=== PATIENT | female | born 1960 | race Caucasian/White ===

== ENCOUNTER 2017-01-08 22:55 | Observation (INO) | payer OTHER ==
[~2017-01-08 22:55] MED LIST: ASPI325T PO; ATEN25TA PO
[2017-01-08] MEDS ORDERED: IOHEXOL 350 MG/ML 100 ML BTL (for Cath Lab) OTHER ONE (23:06)
[2017-01-08 23:30] VITALS: BP 123/72; PULSE 75; RESP 20; TEMP 98.3; O2SAT 99
[2017-01-08] MEDS ORDERED: METO50TA PO (23:50)
[2017-01-08] MEDS ORDERED: METF500T PO (23:50)
[2017-01-09] MEDS ORDERED: ACETAMINOPHEN 500 MG CPLT PO PRN (03:00)
[2017-01-09] MEDS ORDERED: ONDANSETRON HCL 4 MG/2 ML VIAL IV PUSH PRN (03:00)
[2017-01-09 04:24] VITALS: BP 119/67; PULSE 73; RESP 19; TEMP 98.1; O2SAT 100
[2017-01-09 07:04] VITALS: BP 107/65; PULSE 76; RESP 18; TEMP 98; O2SAT 99
[2017-01-09] MEDS ORDERED: METO50TA11 PO (07:34)
[2017-01-09 09:12] LABS: ANION GAP 5 MEQ/L (5-15); AST (GOT) 20 U/L (15-37); BICARBONATE 25.2 MEQ/L (21.0-32.0); BLOOD UREA NITROGEN 16 MG/DL (7-18); CHLORIDE 109 MEQ/L (98-107); GLOMERULAR FILTRATION RATE 78 ML/MIN (>89); SODIUM (NA) 139 MEQ/L (136-145)
[2017-01-09 09:14] LABS: ALT (GPT) 28 U/L (10-53)
[2017-01-09 09:16] LABS: ALKALINE PHOSPHATASE 70 U/L (45-117); TOTAL BILIRUBIN ADULT 0.8 MG/DL (0.2-1.0)
--- NOTE | 2017-01-09 09:25 | RADRPT ---
EXAM DATE/TIME: 01/09/2017 08:08 [facility] COMPARISON: No previous studies available for comparison. INDICATIONS : Nausea and vomiting. MEDICAL HISTORY : Diabetes. Irregular heartbeat. SURGICAL HISTORY : Right knee surgery. ENCOUNTER: Initial ACUITY: 2 days PAIN SCORE: 3/10 LOCATION: Right upper quadrant MEASUREMENTS: LIVER: 18.3 cm length COMMON DUCT: 5 mm RIGHT KIDNEY: 12.3 x 6.3 x 5.3 cm FINDINGS: LIVER: Mildly diffusely increased echogenicity without evidence for volume loss or intrahepatic ductal dilat ation or focal mass. COMMON DUCT: No intraluminal mass or stone visualized. GALLBLADDER: Small amount of layering echogenic material in the gallbladder consistent with sludge. No gallbladder wall thickening, pericholecystic fluid or sonographic Kelly sign. PANCREAS: The visualized portions are within normal limits. RIGHT KIDNEY: No evidence of hydronephrosis, stone, or mass. CONCLUSION: 1. Small amount of gallbladder sludge without sonographic evidence for acute cholecystitis. 2. Increased hepatic echogenicity without evidence for volume loss consistent with hepatic steatosis or medical liver disease. Sang Daugherty MD on January 09, 2017 at 9:22 Board Certified Radiologist. This report was verified electronically.
--- NOTE | 2017-01-09 09:39 | HHI.HP ---
HPI Primary Care Physician Non-Staff Chief Complaint Chest pain History of Present Illness This is a 56-year-old female that presents to ED in [place] to evaluate chest discomfort and subsequently transferred via ambulance to the chest pain center further evaluate her chest discomfort. She states that for the last 2 weeks she has had intermittent central chest discomforts that will last a few seconds at a time. However when it occurs it will repeat itself for about 15 minutes and then resolved. She will have this happen 3-4 times a day over the last 2 weeks. She times lightheaded. She also states that over last 2 weeks she will become short of breath while walking up 2 flights of stairs which is unusual for her. Denies diaphoresis. Initially denied nausea with her symptoms but now states that she recalls being nauseous over last 3-4 weeks. Sometimes related to food ingestion. Initially denied abdominal pain to me but states to Dr. Dewayne Win that she's had intermittent abdominal pains over the last couple weeks as well. Denies bowel movement changes. Denies emesis. Denies blood in stool. Denies recent illnesses. Denies recent travel or recent sick contacts. Review of Systems General: Patient denies fevers, chills recent, and recent travel HEENT: Patient denies headache, sore throat, difficulty swallowing. Cardiovascular: Has the chest discomfort as mentioned above. At times he has felt a sensation of heart beating rapidly. No syncope. No diaphoresis. Respiratory: She states she has become short of breath walking up 2 flights of stairs which is unusual for. Denies inspirational chest discomfort. Denies coughing wheezing or hemoptysis. GI: Initially denied abdominal pain but with Dr. Dewayne Win evaluation she cannot recall having 2 weeks of intermittent discomforts in her abdomen. She missed occasional nausea. Denies emesis. Denies black or bloody stools. Musculoskeletal: Patient denies joint pain or edema. Denies calf pain or edema. Neurovascular: Patient denies numbness, tingling, weakness in extremities. Denies headache. Endocrine: Denies polyuria and polydipsia. Hematologic: Denies easy bruising. Skin: Denies rash or itching. Past Family Social History Allergies: Coded Allergies: No Known Allergies (Verified Allergy, Severe, 01/08/17) Past Medical History Diabetes for 4 years. History of an arrhythmia states she takes beta danitza for that. Denies hypertension, hyperlipidemia, CAD. Believes she had a stress test 10 years ago and that was okay. Reported Medications Reported Meds & Active Scripts Active Reported Metoprolol Succinate ER 24 HR (Metoprolol Succinate) 50 Mg Tab 50 Mg PO DAILY Metformin (Metformin HCl) 500 Mg Tab 500 Mg PO BIDPC Metoprolol Tartrate 50 Mg Tab 50 Mg PO DAILY Aspirin 325 Mg Tab 325 Mg PO DAILY Active Ordered Medications Current Medications Medications (Trade) Dose Ordered Sig/Ivon Route Start Time Stop Time Status Last Admin (Tylenol) 500 mg Q4H PRN PO 01/09/17 03:00 (Zofran Inj) 4 mg Q6H PRN IV PUSH 01/09/17 03:00 Family History Her father had onset CAD in his 50s lived to be 71. Social History Patient is a lifetime nonsmoker. Denies alcohol or illicit drugs. She is for 25 years. Physical Exam Vital Signs Vital Signs Date Time Temp Pulse Resp B/P (MAP) Pulse Ox O2 Delivery O2 Flow Rate FiO2 01/09/17 07:04 98.0 76 18 107/65 (79) 99 01/09/17 04:24 98.1 73 19 119/67 (84) 100 01/08/17 23:30 98.3 75 20 123/72 (89) 99 Physical Exam GENERAL: This is a well-nourished, well-developed patient, in no apparent distress. Patient speaks in clear complete sentences. Patient is pleasant. HEENT: Head is atraumatic and normocephalic. Neck is supple without lymphadenopathy and trachea is midline. No JVD or carotid bruits. CARDIOVASCULAR: Regular rate and rhythm without murmurs, gallops, or rubs. RESPIRATORY: Clear to auscultation. Breath sounds equal bilaterally. No wheezes , rales, or rhonchi. Chest wall is nontender. No use of accessory muscles. GASTROINTESTINAL: Abdomen is tender more so in the epigastric region. Nondistended. Abdomen soft. No obvious pulsatile mass or bruit. No CVA tenderness. Normal bowel sounds in all quadrants. MUSCULOSKELETAL: Patient is moving upper and lower extremities freely. No calf tenderness or edema, no Homans sign. Strong pulses in upper and lower extremities. NEUROLOGICAL: Patient is alert and oriented. Cranial nerves 2-12 are grossly intact. No focal deficits and speech is clear. SKIN: No rash and turgor is normal. Laboratory Laboratory Tests Test 01/09/17 08:35 Blood Urea Nitrogen 16 Creatinine 0.77 Random Glucose 108 Total Protein 6.8 Albumin 3.7 Calcium Level 8.7 Alkaline Phosphatase 70 Aspartate Amino Transf (AST/SGOT) 20 Alanine Aminotransferase (ALT/SGPT) 28 Total Bilirubin 0.8 Sodium Level 139 Potassium Level 4.0 Chloride Level 109 Carbon Dioxide Level 25.2 Anion Gap 5 Estimat Glomerular Filtration Rate 78 Lipase 105 Result Diagram: 01/09/17 0835 Course EKGs have sinus rhythm without significant ST segment depressions or elevations. Caprini VTE Risk Assessment Caprini VTE Risk Assessment: No/Low Risk (score <= 1) Caprini Risk Assessment Model Point Value = 1 Point Value = 2 Point Value = 3 Point Value = 5 Age 41-60 Minor surgery BMI > 25 kg/m2 Swollen legs Varicose veins or History of unexplained or recurrent spontaneous Oral contraceptives or hormone replacement Sepsis (< 1 month) Serious lung disease, including pneumonia (< 1 month) Abnormal pulmonary function Acute myocardial infarction Congestive heart failure (< 1 month) History of inflammatory bowel disease Medical patient at bed rest Age 61-74 Arthroscopic surgery Major open surgery (> 45 min) Laparoscopic surgery (> 45 min) Malignancy Confined to bed (> 72 hours) Immobilizing plaster cast Central venous access Age >= 75 History of VTE Family history of VTE Factor V Leiden Prothrombin [id number] Lupus anticoagulant Anticardiolipin antibodies Elevated serum homocysteine Heparin-induced thrombocytopenia Other congenital or acquired thrombophilia Stroke (< 1 month) Elective arthroplasty Hip, pelvis, or leg fracture Acute spinal cord injury (< 1 month) Prophylaxis Regimen Total Risk Factor Score Risk Level Prophylaxis Regimen 0-1 Low Early ambulation 2 Moderate Order ONE of the following: *Sequential Compression Device (SCD) *Heparin 5000 units SQ BID 3-4 Higher Order ONE of the following medications: *Heparin 5000 units SQ TID *Enoxaparin/Lovenox 40 mg SQ daily (WT < 150 kg, CrCl > 30 mL/min) *Enoxaparin/Lovenox 30 mg SQ daily (WT < 150 kg, CrCl > 10-29 mL/min) *Enoxaparin/Lovenox 30 mg SQ BID (WT < 150 kg, CrCl > 30 mL/min) AND/OR *Sequential Compression Device (SCD) 5 or more Highest Order ONE of the following medications: *Heparin 5000 units SQ TID (Preferred with Epidurals) *Enoxaparin/Lovenox 40 mg SQ daily (WT < 150 kg, CrCl > 30 mL/min) *Enoxaparin/Lovenox 30 mg SQ daily (WT < 150 kg, CrCl > 10-29 mL/min) *Enoxaparin/Lovenox 30 mg SQ BID (WT < 150 kg, CrCl > 30 mL/min) AND *Sequential Compression Device (SCD) Assessment and Plan Assessment and Plan * Chest pain: Patient has had serial cardiac enzymes and EKGs for ruling out purposes. She was seen by Dr. Dewayne Win of cardiology in the chest pain center and will undergo a Lexiscan myocardial perfusion stress test and likely be discharged home if that is nonischemic also pending the workup for her abdominal discomfort. She should follow-up with her PCP after discharge. * Abdominal pain: We will get LFTs, lipase, and gallbladder ultrasound. * Diabetes: Patient on sliding scale coverage. Resume medication at discharge. She should follow diabetic diet. Patient is stable at this time. She is agreeable to this plan. Alejandro Pastor Jan 09, 2017 09:39
[2017-01-09] MEDS ORDERED: REGADENOSON INJ 0.4 MG/5 ML SYR ONE (10:36)
--- NOTE | 2017-01-09 11:50 | RADRPT ---
EXAM DATE/TIME: 01/09/2017 09:23 1[facility] COMPARISON: No previous studies available for comparison. INDICATIONS : Mid chest pain for two weeks. Angina. DOSE: 35.0 mCi Tc99m Myoview at stress. 11 mCi Tc99m Myoview at rest. 0.4 mg Lexiscan STRESS SYMPTOMS: Shortness of breath, dizziness. EJECTION FRACTION: 66% MEDICAL HISTORY : Diabetes mellitus type 2. SURGICAL HISTORY : Right knee. ENCOUNTER: Initial ACUITY: 2 weeks PAIN SCALE: 4/10 LOCATION: Midsternal chest TECHNIQUE: The patient underwent pharmacologic stress with infusion of prescribed dose. Continuous ECG tracing was monitored during stress. Gated SPECT imaging was performed after stress and conventional SPECT i maging was performed at rest. The examination was performed on a SPECT/CT scanner, both attenuation and non-corrected datasets were reviewed. FINDINGS: DISTRIBUTION: The maximum perfused segment at stress is in the lateral wall. PERFUSION STUDY: There is small area of moderately diminished relative perfusion involving the inferolateral region wi th at least mild redistribution present. GATED STUDY: There is intact wall motion and thickening without hypokinetic or dyskinetic segments. CONCLUSION: Small sized moderate severity moderately reversible inferolateral perfusion abnormality. RISK CATEGORY: Low (<1% Annual Mortality Rate) Samson Longoria MD on January 09, 2017 at 11:43 Board Certified Radiologist. This report was verified electronically.
[2017-01-09 12:53] VITALS: BP 159/96; PULSE 65
[2017-01-09] MEDS ORDERED: METOPROLOL SUCCINATE 50 MG EXTENDED RELEASE TAB PO SCH (13:00)
[2017-01-09] MEDS ORDERED: SODIUM CHLOR 0.9% 1000 ML INJ 1,000 ML IV SCH (13:01)
[2017-01-09] MEDS ORDERED: MIDAZOLAM HCL 5 MG/5 ML VIAL ONE (14:02)
[2017-01-09] MEDS ORDERED: HEPARIN-NS/PF INJ 1,000 ML ONE (14:03)
[2017-01-09] MEDS ORDERED: SODIUM CHLORID 0.9% 500 ML INJ 500 ML ONE ×2 (14:03→14:04)
[2017-01-09] MEDS ORDERED: MIDAZOLAM HCL 2 MG/2 ML VIAL ONE (14:35)
--- NOTE | 2017-01-09 15:09 | CATHPROC ---
[facility] HIS Report Study Information Study Number Admission Scheduled Start Study Start [id number] Jan 08 2017 11:05PM 01/09/2017 Jan 09 2017 1:50PM [place] [facility] Cardiac Catheterization Admit Source Facility Department Emergency department [facility] - Battery Starter Physician and Clinical Staff Initial MD Renee, Jessica [employer] Operations Manager Viviana Crowell,REINALDO Other cathlab, cathlab Recorder Viola Leon,PROFESSIONAL SERVICES MANAGER TECH2 Scrub Silvia Lopez RCIS TECH2 Procedures Performed Procedure Location (Site) Vessel Name Angiogram LV LV Ventricle Coronary Angiograms LCA Left Coronary Coronary Angiograms RCA Right Coronary L Heart Cath Equipment Time Leather Products Supervisor Description Size Mfg Part Number Used/Scraped TRANSDUCER, TRUWAVE [id number] 13:52 Home Chef VINCENT * Used W/STOCKCOCK *[id number] 14:57 PCA Audit MEDICAL VASCADE, FR5 CLOSURE SYSTEM FR 5 Used *[id number] *[id number] [id number] *[id number] [id number] *[id number] 13:52 [employer] IND[employer]RIES PACK, CCL CUSTOM * Used *[id number] 13:52 [employer] PACER PEN, SKIN DUAL W/ RULER * Used *[id number] 13:52 [employer] WIRE, 3MMJ .035 180CM 180CM Used *[id number] PROBE COVER, STERILE [id number] 13:52 [employer] MEDICAL * Used ULTRASOUND W/ GEL *[id number] 13:52 NAMIC MANIFOLD, 4 PORT * Used *[id number] 13:52 NAMIC TUBING, HIGH PRESSURE 48" 48" Used *[id number] 13:52 NYCOMED OMNIPAQUE, 350 MG, 150ML 150ML [id number] Used 14:44 NYCOMED OMNIPAQUE, 350 MG, 50ML 50ML [id number] Used [id number] 13:52 [employer] BL[employer]ET,WARM AIR CCL * Used *[id number] 13:[address] MEDICAL SHEATH, FR5 TERUMO (10CM) FR 5 Used *[id number] History: Current Medications Medication Dosage/Unit Route Frequency Last Date/Time Taken ASA Glucophage History: Allergies Allergy Reaction No Known Allergies History: Risk Factors Family History of Hypertension Dyslipidemia Previous OK Previous Heart Failure Premature CAD Yes No Yes No No Prior Valve Prior PCI Prior CABG Surgery No No No Cerebrovascular Peripheral Artery Chronic Lung On Dialysis Diabetes Diabetes Therapy Disease Disease Disease No No No No Yes Oral History: Symptoms/Diagnosis Selection Items Angina-unstable Chest pain History: Stress Tests Stress or Imaging Studies Performed Yes Standard Exercise Stress Test No Stress Echo No Stress Test SPECT No Stress Test CMR Stress Test CMR Result Stress Test CMR Ischemia Risk/Extent Yes Positive Intermediate Cardiac CTA Coronary Calcium Score No No History: Other Current Smoker No Labs Hgb (g/dl) Hct (%) WBC (l/cumm) Platelets (thousands) 11.60-17.00 35.00-51.00 4.00-11.00 150.00-450.00 14.5 42.8 5.7 284 Glucose (mg/dl) BUN (mg/dl) Creatinine (mg/dl) BUN:Creatinine (1:x) 74.00-106.00 7.00-18.00 0.50-1.30 10.00-20.00 108 16 0.7 22.9 Na (meq/l) K (meq/l) 136.00-145.00 3.50-5.10 139 4 INR (PTT:PT) 0.90-1.10 1 Medication Medication Total Dose (Bolus/Oral) Medication Total Dosage/Unit 1% XYLOCAINE 20 mL FENTANYL 200 mcg OXYGEN 2 l/min VERSED 7 mg Medications (Bolus/Oral) Medication Time Given Dosage/Unit Administered By Reason FENTANYL 01/09/2017 2:22:03 PM 50 mcg Hesher, Viviana 50 mcg FENTANYL given in lab by Viviana Crowell RN in Left Antecubital via Peripheral IV. Ordered by Jessica Renee. VERSED 01/09/2017 2:25:00 PM 2 mg Hesher, Viviana 2 mg VERSED given in lab by Viviana Crowell RN in Left Antecubital via Peripheral IV. Ordered by Jessica Macias. VERSED 01/09/2017 2:27:53 PM 1 mg Hesher, Viviana 1 mg VERSED given in lab by Viviana Crowell RN in Left Antecubital via Peripheral IV. Ordered by Jessica Macias. FENTANYL 01/09/2017 2:28:00 PM 25 mcg Hesher, Viviana 25 mcg FENTANYL given in lab by Viviana Crowell RN in Left Antecubital via Peripheral IV. Ordered by Jessica Renee. OXYGEN 01/09/2017 2:28:15 PM 2 l/min Hesher, Viviana 2 l/min OXYGEN given in lab by Viviana Crowell RN via Nasal. Ordered by Jessica Renee. VERSED 01/09/2017 2:31:41 PM 1 mg Hesher, Viviana 1 mg VERSED given in lab by Viviana Crowell RN in Left Antecubital via Peripheral IV. Ordered by Jessica Macias. FENTANYL 01/09/2017 2:34:52 PM 25 mcg Hesher, Viviana 25 mcg FENTANYL given in lab by Viviana Crowell RN in Left Antecubital via Peripheral IV. Ordered by Jessica Renee. VERSED 01/09/2017 2:38:19 PM 1 mg Hesher, Viviana 1 mg VERSED given in lab by Viviana Crowell RN in Left Antecubital via Peripheral IV. Ordered by Jessica Macias. 1% XYLOCAINE 01/09/2017 2:39:05 PM 20 mL Jessica Renee 20 mL 1% XYLOCAINE given in lab by Jessica Renee in Right Groin via Subcutaneous. Ordered by Jessica Cesar. FENTANYL 01/09/2017 2:39:34 PM 25 mcg Hesher, Viviana 25 mcg FENTANYL given in lab by Viviana Crowell RN in Left Antecubital via Peripheral IV. Ordered by Jessica Renee. FENTANYL 01/09/2017 2:50:44 PM 25 mcg Hesher, Viviana 25 mcg FENTANYL given in lab by Viviana Crowell RN in Left Antecubital via Peripheral IV. Ordered by Jessica Renee. VERSED 01/09/2017 2:51:20 PM 1 mg Hesher, Viviana 1 mg VERSED given in lab by Viviana Crowell RN in Left Antecubital via Peripheral IV. Ordered by Jessica Macias. VERSED 01/09/2017 2:51:42 PM 1 mg Hesher, Viviana 1 mg VERSED given in lab by Viviana Crowell RN in Left Antecubital via Peripheral IV. Ordered by Jessica Macias. FENTANYL 01/09/2017 2:51:57 PM 50 mcg Hesher, Viviana 50 mcg FENTANYL given in lab by Viviana Crowell RN in Left Antecubital via Peripheral IV. Ordered by Jessica Renee. Medication (Drip) Medication Time Given Dosage/Unit Concentration/Unit Diluent (ml) Solutio n IV Solutions 01/09/2017 1:58:42 PM 0 mL (IV) 500 NaCl .9 Patient arrived on IV Solutions given by cathlab, cathlab in Left Antecubital via Peripheral IV. Pump /Drip Flow = 20 ml/hr using NaCl .9. Ordered by Jessica Renee. Initial Case Assessment Cardiovascular HR NIBP 75 165/100 Edema Present Skin color Skin None Normal Warm Dry Circulatory - Right Pulses Dorsalis Pedis Femoral 3 3 Scale (0,1,2,3,4,d) Circulatory - Left Pulses Dorsalis Pedis Femoral 3 3 Scale (0,1,2,3,4,d) Neurological State Oriented to time-place- Alert Moves all extremities person Respiration - General Respiration Rate SpO2 (%) (B/min) 15 99 Initial Case Assessment Cardiovascular HR NIBP 85 150/89 Edema Present Skin color Skin None Normal Warm Dry Circulatory - Right Pulses Dorsalis Pedis Femoral 3 3 Scale (0,1,2,3,4,d) Circulatory - Left Pulses Dorsalis Pedis Femoral 3 3 Scale (0,1,2,3,4,d) Neurological State Oriented to time-place- Alert Moves all extremities person Respiration - General Respiration Rate SpO2 (%) (B/min) 16 95 Chronological Log Time Study Chronological Log 13:54:27 Patient arrived via Bed. 13:54:28 Patient Name, D.O.B, / Armband Verified By R.N. 13:58:33 Patient has been NPO for More than 6Hrs. 13:58:35 Skin Breakdown- 13:58:41 Jose Prominences Protected 13:58:42 A # 20 IV was noted in the Antecubital (left). Grade = 0 Patient arrived on IV Solutions given by cathlab, cathlab in Left Antecubital via Peripheral IV . Pump/Drip Flow = 20 13:58:42 ml/hr using NaCl .9. Ordered by Jessica Renee. 13:58:43 History and physical on the chart or being dictated. Vitals capture started with the following parameters, Patient=Adult, Interval=3 min, Initial Pr xokhfo=642 mmHg, 14:01:30 Deflation Rate=5 mmHg, Cuff placed on Left Ankle 14:01:47 Reference ECG taken 14:02:09 HR=75 bpm, NQYX=636/100 mmhg, SpO2=99 %, Resp=12 B/min, Pain=0, Darvin=10, Nguyen=2 Assessment: Initial Case, HR=75 BPM, NXUM=656/100 mmhg, Edema=None, Color=Normal, Skin = Warm, Dry Right Pulses: Fan Ped=3, Femoral=3 14:02:32 Left Pulses: Fan Ped=3, Femoral=3 Neurological: State=Alert, Ox3, HORNA Respiration: Resp=15 B/min, SpO2=99 % 14:05:11 HR=84 bpm, FSYM=661/95 mmhg, SpO2=99 %, Resp=16 B/min, Pain=0, Darvin=10, Nguyen=2 14:08:13 HR=78 bpm, SQQO=596/105 mmhg, SpO2=99 %, Resp=18 B/min, Pain=0, Darvin=10, Nguyen=2 14:11:14 HR=83 bpm, CCQI=963/91 mmhg, SpO2=94.0 %, Resp=19 B/min, Pain=0, Darvin=10, Nguyen=2 14:14:00 Bilateral groins prepped with 2% chlorhexidine, and draped after a 3 minute waiting time. 14:14:16 HR=80 bpm, DUVP=808/91 mmhg, SpO2=99 %, Resp=16 B/min, Pain=0, Darvin=10, Nguyen=2 14:17:12 HR=84 bpm, EBRB=208/94 mmhg, HnW6=409.0 %, Resp=20 B/min, Pain=0, Darvin=10, Nguyen=2 14:18:54 Pressure channel 1 zeroed. 14:20:12 HR=81 bpm, BZSU=375/90 mmhg, SpO2=98.0 %, Resp=20 B/min, Pain=0, Darvin=10, Nguyen=2 14:22:03 50 mcg FENTANYL given in lab by Viviana Crowell, RN in Left Antecubital via Peripheral IV. O rdered by Jessica Renee. 14:23:08 HR=81 bpm, OXYY=737/100 mmhg, TcM7=946.0 %, Resp=16 B/min, Pain=0, Darvin=10, Nguyen=2 14:25:00 2 mg VERSED given in lab by Viviana Crowell RN in Left Antecubital via Peripheral IV. Order ed by Jessica Renee. 14:26:11 HR=72 bpm, PQER=646/96 mmhg, YlN1=009.0 %, Resp=15 B/min, Pain=0, Darvin=10, Nguyen=2 14:27:53 1 mg VERSED given in lab by Viviana Crowell RN in Left Antecubital via Peripheral IV. Order ed by Jessica Renee. 14:28:00 25 mcg FENTANYL given in lab by Viviana Crowell RN in Left Antecubital via Peripheral IV. O rdered by Jessica Renee. 14:28:15 2 l/min OXYGEN given in lab by Viviana Crowell RN via Nasal. Ordered by Jessica Renee. 14:29:15 HR=84 bpm, LMMO=534/86 mmhg, SpO2=96.0 %, Resp=13 B/min, Pain=0, Darvin=10, Nguyen=2 14:31:41 1 mg VERSED given in lab by Viviana Crowell RN in Left Antecubital via Peripheral IV. Order ed by Jessica Renee. 14:32:09 HR=80 bpm, OOAT=201/85 mmhg, SpO2=97.0 %, Resp=15 B/min, Pain=0, Darvin=10, Nguyen=2 14:34:52 25 mcg FENTANYL given in lab by Viviana Crowell RN in Left Antecubital via Peripheral IV. O rdered by Jessica Renee. 14:35:15 HR=77 bpm, ARHP=567/74 mmhg, SpO2=96.0 %, Resp=14 B/min, Pain=0, Darvin=10, Nguyen=2 14:38:14 HR=83 bpm, UQOM=814/80 mmhg, SpO2=96.0 %, Resp=17 B/min, Pain=0, Darvin=10, Nguyen=2 14:38:19 1 mg VERSED given in lab by Viviana Crowell RN in Left Antecubital via Peripheral IV. Order ed by Jessica Renee. Time Out. Correct patient, correct procedure, correct physician, power injector loaded, or not loaded with contrast with 14:38:21 surgical team present. Time Out Concurred by MD and individual staff in procedure. 14:39:04 Case Start 14:39:05 20 mL 1% XYLOCAINE given in lab by Jessica Renee in Right Groin via Subcutaneous. Ordered by Jessica Renee. 14:39:34 25 mcg FENTANYL given in lab by Viviana Crowell RN in Left Antecubital via Peripheral IV. O rdered by Jessica Renee. 14:40:04 Access site was Right Femoral Artery. 14:40:10 A SHEATH, FR5 TERUMO (10CM) FR 5 was advanced into the Fem Art (right) using the Modified S eldinger technique. 14:41:14 HR=81 bpm, ASDJ=449/85 mmhg, SpO2=97.0 %, Resp=16 B/min, Pain=0, Darvin=10, Nguyen=2 A PIGTAIL ANG. INFINITI CATHETER FR 5 was advanced over a wire. OMNIPAQUE, 350 MG, 150ML 150ML was used 14:42:05 for injections. Recorded Pressure: LV, HR=84, Condition=Condition 1 14:43:22 (Left Ventricle) LV 110/8/10 14:44:02 The LV was injected at 10 cc/sec for a total of 30. OMNIPAQUE, 350 MG, 50ML 50ML used. Recorded Pressure: LV, Ao, HR=96, Condition=Condition 1 14:44:31 (Left Ventricle) LV 128/7/15, (Aorta) Ao 123/80/101 14:44:51 HR=95 bpm, VIYH=107/78 mmhg, SpO2=87.0 %, Resp=21 B/min, Pain=0, Darvin=10, Nguyen=2 14:45:32 Catheter was removed Recorded Pressure: Ao, HR=96, Condition=Condition 1 14:46:14 (Aorta) Ao 125/85/104 A JL 4.0 INFINITI CATHETER FR 6 was advanced over a wire. OMNIPAQUE, 350 MG, 150ML 150ML was us ed for 14:46:36 injections. 14:46:56 The LCA was injected and visualized at various angles. OMNIPAQUE, 350 MG, 150ML 150ML used . 14:47:14 HR=98 bpm, IKNK=646/94 mmhg, SpO2=97.0 %, Resp=19 B/min, Pain=0, Darvin=10, Nguyen=2 14:48:06 Catheter was removed A AR MOD INFINITI CATHETER FR 5 was advanced over a wire. OMNIPAQUE, 350 MG, 150ML 150ML was u sed for 14:48:09 injections. 14:49:24 The RCA was injected and visualized at various angles. OMNIPAQUE, 350 MG, 150ML 150ML use d. 14:50:14 Catheter was removed 14:50:15 RB=503 bpm, BKGM=485/96 mmhg, SpO2=97 %, Resp=16 B/min, Pain=0, Darvin=10, Nguyen=2 14:50:44 25 mcg FENTANYL given in lab by Viviana Crowell RN in Left Antecubital via Peripheral IV. Ordered by Jessica Renee. 14:51:20 1 mg VERSED given in lab by Viviana Crowell RN in Left Antecubital via Peripheral IV. Orde red by Jessica Renee. 14:51:42 1 mg VERSED given in lab by Viviana Crowell RN in Left Antecubital via Peripheral IV. Orde red by Jessica Renee. 14:51:57 50 mcg FENTANYL given in lab by Viviana Crowell RN in Left Antecubital via Peripheral IV. Ordered by Jessica Renee. 14:53:15 HR=97 bpm, UTRF=554/95 mmhg, SpO2=97.0 %, Resp=13 B/min, Pain=0, Darvin=10, Nguyen=2 Recorded Pressure: FA, DC=189, Condition=Condition 1 14:53:18 (Femoral Artery) FA 140/84/108 14:54:00 An injection in the Fem Art (right) was made through the SHEATH, FR5 TERUMO (10CM) FR 5. 14:56:13 HR=99 bpm, YMRR=781/94 mmhg, SpO2=97.0 %, Resp=17 B/min, Pain=0, Darvin=10, Nguyen=2 14:57:09 VASCADE, FR5 CLOSURE SYSTEM FR 5 placement in the Fem Art (right) 14:57:27 Case End 14:57:30 Sterile dressing applied to site 14:57:31 No case complications noted. 14:57:32 Cine recording checked. 14:57:37 Bedside Report will be given. 14:57:59 A Left Heart Cath was performed. 14:59:13 HR=85 bpm, VAZG=011/91 mmhg, SpO2=95.0 %, Resp=16 B/min, Pain=0, Darvin=10, Nguyen=2 Assessment: Initial Case, HR=85 BPM, QDKO=013/89 mmhg, Edema=None, Color=Normal, Skin = Warm, Dry Right Pulses: Fan Ped=3, Femoral=3 15:03:29 Left Pulses: Fan Ped=3, Femoral=3 Neurological: State=Alert, Ox3, HORAN Respiration: Resp=16 B/min, SpO2=95 % 15:03:36 Vitals capture stopped. 15:06:57 [facility] Study - Contrast Media Used In Study Contrast Total Opened (mL) Total Used (mL) Total Wasted (mL) Omnipaque 80 80 0 End Study - Maximum Contrast Load Max Contrast Load (mL) 976.3 End Study - Radiation Exposure Fluoro Time (minutes) 1.4 End Study - Patient Disposition Complications Transferred To Telemetry Bed
--- NOTE | 2017-01-09 15:20 | MB ---
cc: JESSICA RENEE DATE OF CONSULTATION: 01/09/2017 HISTORY OF PRESENT ILLNESS Ms. Machado is a 56-year-old white female with a history of diabetes mellitus. She has had 1-2 week history of substernal chest discomfort which has been recurrent. She also had increased dyspnea with exertion and nausea. She underwent myocardial perfusion study which showed inferolateral reversible defect consistent with ischemia. PAST MEDICAL HISTORY 1. Positive for diabetes mellitus. 2. No history of hypertension, dyslipidemia, coronary artery disease or CVA, sinus arrhythmia. ALLERGIES None. SOCIAL HISTORY The patient does not smoke, she does not drink alcohol. FAMILY HISTORY Family history is positive for heart disease in her father. REVIEW OF SYSTEMS Otherwise negative. PHYSICAL EXAMINATION VITAL SIGNS: Blood pressure 159/96, pulse 65 and regular. HEENT: Negative. 2+ carotid upstrokes. No bruits. LUNGS: Clear. HEART: Regular with no murmur, gallop or rub. ABDOMEN: Soft. Obese. No bruits. EXTREMITIES: Without edema. 2+ distal pulses. NEUROLOGIC: Grossly nonfocal. EKG EKG was reviewed and showed normal sinus rhythm with normal axis and intervals, no acute changes. LABORATORY DATA Potassium 4.0, creatinine 0.77, AST and ALT normal. DIAGNOSIS 1. Unstable angina. 2. Abnormal nuclear myocardial perfusion study. 3. Diabetes mellitus. DISPOSITION Ms. Machado will undergo cardiac catheterization and coronary intervention if necessary. She understands the risks and benefits and wishes to proceed. We will continue aggressive modification of her cardiac risk factors. I will see her back for followup in our office after discharge. Jessica Renee MD OQ/TLL /1:38 PM /3:03 PM
[2017-01-09] MEDS ORDERED: METF500T PO (15:39)
--- NOTE | 2017-01-09 15:43 | HHI.DS ---
Discharge Summary Admission Date Jan 08, 2017 at 23:05 Discharge Date: Jan 09, 2017 Admitting Diagnosis (1) Chest pain, atypical ICD Code: R07.89 - Other chest pain Diagnosis: Principal Procedures Stress Test and Cardiac Catheterization. Brief History - From Admission This is a 56-year-old female that presents to ED in [place] to evaluate chest discomfort and subsequently transferred via ambulance to the chest pain center further evaluate her chest discomfort. She states that for the last 2 weeks she has had intermittent central chest discomforts that will last a few seconds at a time. However when it occurs it will repeat itself for about 15 minutes and then resolved. She will have this happen 3-4 times a day over the last 2 weeks. She times lightheaded. She also states that over last 2 weeks she will become short of breath while walking up 2 flights of stairs which is unusual for her. Denies diaphoresis. Initially denied nausea with her symptoms but now states that she recalls being nauseous over last 3-4 weeks. Sometimes related to food ingestion. Initially denied abdominal pain to me but states to Dr. Dewayne Win that she's had intermittent abdominal pains over the last couple weeks as well. Denies bowel movement changes. Denies emesis. Denies blood in stool. Denies recent illnesses. Denies recent travel or recent sick contacts. CBC/BMP: 01/09/17 0835 Significant Findings Laboratory Tests Test 01/09/17 08:35 Random Glucose 108 MG/DL (74-106) Chloride Level 109 MEQ/L (98-107) Estimat Glomerular Filtration Rate 78 ML/MIN (>89) Imaging Last Impressions Myocardial Perfusion Scan Nuc Med 01/09/17 0000 Signed Impressions: Service Date/Time: Monday, January 09, 2017 09:23 - CONCLUSION: Small sized moderate severity moderately reversible inferolateral perfusion abnormality. RISK CATEGORY: Low (<1%% Annual Mortality Rate) Samson Longoria MD Gall Bladder Ultrasound 01/09/17 0000 Signed Impressions: Service Date/Time: Monday, January 09, 2017 08:08 - CONCLUSION: 1. Small amount of gallbladder sludge without sonographic evidence for acute cholecystitis. 2. Increased hepatic echogenicity without evidence for volume loss consistent with hepatic steatosis or medical liver disease. Sang Daugherty MD PE at Discharge GENERAL: This is a well-nourished, well-developed patient, in no apparent distress. Patient speaks in clear complete sentences. Patient is pleasant. HEENT: Head is atraumatic and normocephalic. Neck is supple without lymphadenopathy and trachea is midline. No JVD or carotid bruits. CARDIOVASCULAR: Regular rate and rhythm without murmurs, gallops, or rubs. RESPIRATORY: Clear to auscultation. Breath sounds equal bilaterally. No wheezes , rales, or rhonchi. Chest wall is nontender. No use of accessory muscles. GASTROINTESTINAL: Abdomen is tender more so in the epigastric region. Nondistended. Abdomen soft. No obvious pulsatile mass or bruit. No CVA tenderness. Normal bowel sounds in all quadrants. MUSCULOSKELETAL: Patient is moving upper and lower extremities freely. No calf tenderness or edema, no Homans sign. Strong pulses in upper and lower extremities. NEUROLOGICAL: Patient is alert and oriented. Cranial nerves 2-12 are grossly intact. No focal deficits and speech is clear. Hospital Course This is a 56-year-old female that presents to ED in [place] to evaluate chest discomfort and subsequently transferred via ambulance to the chest pain center further evaluate her chest discomfort. She states that for the last 2 weeks she has had intermittent central chest discomforts that will last a few seconds at a time. However when it occurs it will repeat itself for about 15 minutes and then resolved. She will have this happen 3-4 times a day over the last 2 weeks. She times lightheaded. She also states that over last 2 weeks she will become short of breath while walking up 2 flights of stairs which is unusual for her. Denies diaphoresis. Initially denied nausea with her symptoms but now states that she recalls being nauseous over last 3-4 weeks. Sometimes related to food ingestion. Initially denied abdominal pain to me but states to Dr. Dewayne Win that she's had intermittent abdominal pains over the last couple weeks as well. Denies bowel movement changes. Denies emesis. Denies blood in stool. Denies recent illnesses. Denies recent travel or recent sick contacts. Atypical chest pain in a patient with Diabetes and Hypertension , obesity status post Cardiac Catheterization recommended by Doctor Renee for discharge and follow in his office. follow PCP in 2 days. do not take metformin for the next 48 hours continue Diabetic and heart healthy diet. weight loss warranted. Pt Condition on Discharge: Good Discharge Disposition: Discharge Home Discharge Time: <= 30 minutes Discharge Instructions DIET: Follow Instructions for: Heart Healthy Diet Activities you can perform: Regular-No Restrictions Other Activity Instructions: avoid Strenous exercise Vinicius Avila MD Jan 09, 2017 15:43
--- NOTE | 2017-01-09 17:21 | TR ---
Date Performed: 01/09/2017 Time Performed: 10:15:29 DOCTOR: Dewayne Win DRUG LIST: CLINICAL HISTORY: REASON FOR TEST: Angina REASON FOR ENDING: OBSERVATION: CONCLUSION: Lexiscan stress test was performed under standard four minute protocol. Radionuclid e was injected one minute prior to ending the test. No electrocardiographic abormalities were present to suggest ischemia. Nuclear imaging and interpretation are pending. COMMENTS:
[2017-01-09] MEDS ORDERED: SODIUM CHLOR 0.9% 1000 ML INJ 500 ML IV SCH (17:39)
[2017-01-09 21:44] LABS: HDL CHOLESTEROL 42.1 MG/DL (40.0-60.0)
--- NOTE | 2017-01-09 22:24 | MA ---
cc: JESSICA RENEE DATE 01/09/2017 INDICATION Unstable angina, class III angina, diabetes mellitus, intermediate probability nuclear myocardial perfusion study. PROCEDURE PERFORMED 1. Retrograde left heart catheterization with left ventriculography and selective angiography. 2. Moderate sedation. ACCESS SITE Right femoral artery. EQUIPMENT USED 5 Cypriot pigtail catheter, JL4 and AR modified coronary artery catheters. MEDICATIONS Versed IV Fentanyl IV. CONTRAST Omnipaque 80 cc. COMPLICATIONS None. METHOD OF HEMOSTASIS Manual compression. RESULTS HEMODYNAMICS. Heart rate 95 beats per minute. Left end-diastolic pressure 7 mmHg. Left ventricle 125/7. Aorta 125/85/104. LEFT VENTRICULOGRAPHY Ejection fraction 55%. Wall motion normal. No mitral regurgitation seen. CORONARY ANGIOGRAPHY Left main coronary artery patent. Left anterior descending artery patent. D-1 patent. D-2 patent. Left circumflex artery patent. OM-1 patent. OM-2 patent. Right coronary artery is a dominant vessel which is patent. PDA patent. PLV patent. DIAGNOSES 1. Widely patent coronary arteries. 2. Preserved left ventricular systolic function. DISPOSITION Ms. Machado can be reassured about her cardiac status. ____ revealed widely patent coronary arteries and preserved left ventricular systolic function. She can be discharged home later today. We will see her back for followup in our office after discharge. Jessica Renee MD OQ/KK /2:56 PM /10:07 PM
[2017-01-10] MEDS ORDERED: ATORVASTATIN 20 MG TAB PO SCH (09:00)
== END 2017-01-09 17:45 | disposition home or self-care (01) ==
LOC: NEDDLT 22:55 → NEPFCDU 23:05 → HCIS 01-09 15:14
PROVIDERS: ADMIT Internal Medicine; ATTEND Internal Medicine
DX: R07.89 Other chest pain (principal); I20.0 Unstable angina; R06.09 Other forms of dyspnea; R94.39 Abnormal result of other cardiovascular function study; R10.9 Unspecified abdominal pain; R42 Dizziness and giddiness; R11.2 Nausea with vomiting, unspecified; R06.02 Shortness of breath; E11.9 Type 2 diabetes mellitus without complications; Z79.899 Other long term (current) drug therapy; Z79.82 Long term (current) use of aspirin
CPT/HCPCS: 71010; 76705; 78452; 80048; 80053; 80061; 82550; 82552; 83690; 83735; 84484; 85025; 85379; 85610; 85730; 93005; 93017; 93458; A9502; C1760; C1769; C1893; G0269; G0378; J1644; J2250; J2785; J3010; J7030; J7040; Q9967